=== PATIENT | female | born 1975 | race Two or more races ===

== ENCOUNTER 2024-10-15 10:27 | Emergency (ER) | payer OTHER, MEDICAID ==
[~2024-10-15] VITALS: Ht 165.1 cm; Wt 100.0 kg
[2024-10-15 10:54] VITALS: TEMP 97.6
[2024-10-15 10:55] VITALS: PULSE 92; RESP 15; O2SAT 96
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
[2024-10-15 11:26] LABS: Hematocrit 38.9 % (36.0-46.0); Hemoglobin 13.2 g/dL (12.2-16.2); Mean Corpuscular Hemoglobin 28.7 pg (28.0-32.0); Mean Corpuscular Volume 84.6 fL (80.0-100.0); Nucleated Red Blood Cells % 0.1 %
[2024-10-15 11:40] LABS: Albumin 4.4 g/dL (3.2-4.8); Alkaline Phosphatase 57 U/L (46-116); Anion Gap 10 (5-15); BUN/Creatinine Ratio 8.4 (10.0-20.0); Bilirubin, Total 0.8 mg/dL (0.2-1.0); Calcium 9.9 mg/dL (8.7-10.4); Carbon Dioxide 25 mmol/L (20-31); Chloride 107 mmol/L (98-107); Creatine Kinase IFCC 46 U/L (34-145); Glucose 102 mg/dL (74-106); Potassium 3.7 mmol/L (3.5-5.1); Sodium 142 mmol/L (136-145); Total Protein 6.5 g/dL (5.7-8.2)
[2024-10-15 11:41] LABS: Alanine Aminotransferase 40 U/L (7-40); Blood Urea Nitrogen 7 mg/dL (9-23)
[2024-10-15] MEDS: IOHEXOL 350 MG/ML 100ML IJ ONE (11:44)
[2024-10-15] MEDS: HYDROcodone-ACET 5/325MG TAB PO ONE (13:10)
[2024-10-15 13:15] LABS: Urine Protein, UAD Negative (Negative)
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
[2024-10-15] MEDS: ONDANSETRON HCL 4 MG/2 ML VIAL IV ONE (13:35)
[2024-10-15 14:00] VITALS: BP 117/76; PULSE 78; RESP 17; O2SAT 97
[2024-10-15] MEDS: KETOROLAC TROMETH 30 MG/ML 1ML VIAL IV ONE (14:47)
--- NOTE | 2024-10-15 19:44 | ECG ---
[facility] Test Date: 2024-10-15 Test Time: 10:29:49 Pat Name: CONCHITA RODRIGUEZ Department: ED Room: Gender: F Nurse School: [employer] : 1975 Requested By: STEFFANY ARAMBULA Order Number: [id number] Reading MD: Gianluca Alexis Measurements Intervals [place] Rate: 84 P: 49 WA: 154 QRS: 0 QRSD: 85 T: 54 QT: 381 QTc: 451 Interpretive Statements Sinus rhythm Low voltage, precordial leads Electronically Signed On 10-18-2024 22:48:56 PDT by Gianluca Alexis Please click the below link to view image of tracing.
== END 2024-10-15 15:10 | disposition home or self-care (01) ==
LOC: ER 10:27 → EDBD 10:27 → ER 15:10
DX: R07.89 Other chest pain (principal); J45.909 Unspecified asthma, uncomplicated; Z90.49 Acquired absence of other specified parts of digestive tract; V89.2XXA Person injured in unspecified motor-vehicle accident, traffic, initial encounter; Y93.I9 Activity, other involving external motion; Y92.488 Other paved roadways as the place of occurrence of the external cause; Y99.8 Other external cause status
CPT/HCPCS: 36415; 71275; 80053; 81001; 82550; 84484; 85025; 93005; 96374; 96375; 99285; J1885; J2405; Q9967